=== PATIENT | female | born 1980 | race Caucasian/White ===

== ENCOUNTER 2021-09-18 14:08 | Emergency (ER) | payer OTHER, SELFPAY ==
--- NOTE | ~2021-09-18 | XR_ITS ---
XR foot RT min 3V 09/18/2021 14:24 INDICATION: Heel pain. PROCEDURE: 4 views right foot COMPARISON: No prior studies for comparison. FINDINGS: Fracture, dislocation or subluxation is not identified. Lisfranc joint intact. There are de generative calcaneal enthesophytes. The soft tissues appear within normal limits. No foreign bodies are identified. IMPRESSION: 1: NO ACUTE BONE OR JOINT ABNORMALITY IDENTIFIED. Reviewed, dictated and finalized at location A.
--- NOTE | 2021-09-18 14:09 | ED.LOWEXIN ---
HPI - Extremity Injury (Lower) General Stated Complaint: right foot injury Time Seen by Provider: 09/18/21 14:09 Source: patient Mode of arrival: ambulatory Limitations: no limitations History of Present Illness HPI Narrative: Ms. Gray is a 41-year-old female patient presenting to clinic today with complaints of right foot pain x2 weeks. She reports she reports that she stepped down this morning and felt a pop to the bottom of her foot that caused pain on both sides of her plantar foot. She denies any other known injury. Related Data Home Medications Medication Instructions Recorded Confirmed No Home Medications 09/18/21 09/18/21 Allergies Allergy/AdvReac Type Severity Reaction Status Date / Time No Known Allergies Allergy Verified 09/18/21 14:50 Review of Systems Review of Systems: Pertinent positives per HPI. Patient denies any fever, chills, rash, headache, visual changes, dizziness, cough, runny nose, sore throat, shortness of breath, chest pain, palpitations, nausea, vomiting, diarrhea, constipation, abdominal pain, or any urinary issues. PMFSH Comments At the time of my signature, I reviewed and agree with the nursing past medical, surgical, social, and family history. There is no relevant family history pertinent to the patient complaint. Exam Narrative: General: Well-developed, well nourished, in no apparent distress Head: Normocephalic, atraumatic. Cardio: Regular rate and rhythm, s1 and s2 normal, no murmur appreciated. Resp: Clear to auscultation bilaterally, no rhonchi, rales, wheezing or rubs. Musculoskeletal: No deformity, tender to palpation over the plantar fascia of the right foot, pain with dorsal flexion, muscle strength strong and equal, peripheral pulse strong, no edema, no cyanosis, normal gait and station Course Course Emergency Course: Portions of this record may have been created with voice recognition software. Level of Care: Express Care Visit Vital Signs Vital signs: Vital signs reviewed MDM - Extremity Injury (Lower) MDM Narrative Medical decision making narrative: At the time of visit patient is resting comfortably on the exam table. Imaging Data Attestation: I personally reviewed and interpreted this imaging study as follows: My impression: Negative for any fracture or malalignment of the foot Radiologist's impression: Close Foot X-Ray (Signed) Myron Alexandre - 09/18/21 [facility] [address] [place] [address] XRay Report Signed Patient: Asia Gray : 1980 MR#: [id number] Age/Sex: 41 / F Acct:[id number] Loc: [facility]? ? ADM Date: 09/18/21Attending Dr: Ordering Physician: Delvin Stone APRN Date of Service: 09/18/21 Procedure(s): XR foot RT min 3V Accession Number(s): [id number] cc: Delvin Stone APRN; Hollie, Rubén BORRERO~ XR foot RT min 3V 09/18/2021 14:24 INDICATION: Heel pain. PROCEDURE: 4 views right foot COMPARISON: No prior studies for comparison. FINDINGS: Fracture, dislocation or subluxation is not identified. Lisfranc joint intact. There are degenerative calcaneal enthesophytes.? The soft tissues appear within normal limits.? No foreign bodies are identified. IMPRESSION: 1: NO ACUTE BONE OR JOINT ABNORMALITY IDENTIFIED. Reviewed, dictated and finalized at location A. Dictated By:? Myron Alexandre MD? 09/18/21 142 Signed By:? ? <Electronically signed by? Myron Alexandre MD in OV> 09/18/21 142 Discharge Plan Discharge Clinical Impression: Bone spur, Plantar fascia syndrome Patient Disposition: Home, Self-Care Condition: Stable Instructions: Plantar Fasciitis (ED), Plantar Fasciitis Exercises (ED) Additional Instructions: Planter fasciitis treatment informati
[2021-09-18 14:15] VITALS: BP 129/81; PULSE 87; RESP 16; TEMP 37.1; O2SAT 98
--- NOTE | 2021-09-18 14:35 | PC.NURSE ---
PT DECLINED WHEELCHAIR, ICE, AND ARTURO FOR COMFORT.
== END 2021-09-18 14:45 | disposition home or self-care (01) ==
PROVIDERS: Emergency Provider Nurse Practitioner Family; PCP Physician Assistant
DX: M77.9 Enthesopathy, unspecified (principal); M72.2 Plantar fascial fibromatosis
CPT/HCPCS: 73630; 99203; G0463

== ENCOUNTER 2022-06-05 11:47 | Emergency (ER) | payer OTHER, SELFPAY ==
--- NOTE | ~2022-06-05 | XR_ITS ---
EXAMINATION: XR sacrum coccyx min 2V INDICATION: Coccygeal pain TECHNIQUE: Four views of the sacrum and coccyx are obtained. COMPARISON: None available FINDINGS: No fracture, dislocation, or subluxation. The bones, soft tissues, and joint spaces are nor mal. IMPRESSION: 1. No acute osseous abnormality. Reviewed, dictated and finalized at location B. E ENGINEER
[2022-06-05 11:54] VITALS: BP 122/101; PULSE 126; RESP 16; TEMP 36.5; O2SAT 100
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
== END 2022-06-05 13:28 | disposition home or self-care (01) ==
PROVIDERS: Emergency Provider Registered Nurse; PCP Physician Assistant
DX: M53.3 Sacrococcygeal disorders, not elsewhere classified (principal)
CPT/HCPCS: 72220; 99213; G0463

== ENCOUNTER 2022-07-10 15:37 | Emergency (ER) | payer OTHER, SELFPAY ==
[2022-07-10 15:40] VITALS: BP 119/74; PULSE 71; RESP 20; TEMP 36.6; O2SAT 100
--- NOTE | 2022-07-10 15:48 | ED.URI ---
HPI - URI/Sore Throat General Chief Complaint: Upper Respiratory Infection Stated Complaint: Cough/Sore Throat Time Seen by Provider: 07/10/22 15:49 Source: patient and RN notes reviewed History of Present Illness HPI Narrative: Patient is a 42-year-old female presents to urgent care with complaints of cough and sore throat. Patient states that the sore throat cough started a few days ago after having congestion for 1 month. Patient has been using Vicks and Mucinex. Denies any fever, nausea, vomiting or known exposure. No other acute complaints. No acute distress noted. Patient aware of the plan of care. Some parts of this dictation were generated by voice recognition software and may contain typographical and/or grammatical inaccuracies. Related Data Home Medications Medication Instructions Recorded Confirmed No Home Medications 07/10/22 07/10/22 Allergies Allergy/AdvReac Type Severity Reaction Status Date / Time No Known Allergies Allergy Verified 07/10/22 15:50 Review of Systems Review of Systems: CONSTITUTIONAL: Denies fever, chills, or sweats. EYES: Denies visual changes, redness, or discharge. ENT: Reports of sore throat, drainage, congestion CARDIOVASCULAR: Denies chest pain, palpitations, or edema. RESPIRATORY: Reports cough without dyspnea GASTROINTESTINAL: Denies abdominal pain, nausea, vomiting, or diarrhea. GENITOURINARY: Denies dysuria or hematuria. SKIN: Denies rash or itching. MUSCULOSKELETAL: Denies back pain, joint pain, or myalgia. NEUROLOGIC: Denies headache, numbness, or weakness. All other systems reviewed are negative, except as documented in HPI. [facility] Past Medical History Medical History (Updated 07/10/22 @ 16:12 by MATT Boyer) Achilles tendonitis Surgical History Surgical History (Updated 06/06/22 @ 14:29 by Hillary Manzanares NP) H/O tubal ligation Comments At the time of my signature, I reviewed and agree with the nursing past medical, surgical, social, and family history. There is no relevant family history pertinent to the patient complaint. Exam Narrative: GENERAL: This is a well-nourished, well-developed patient, in no apparent distress. HEAD: normocephalic, atraumatic. EYES: PERRL. Sclera clear/white. Vision is grossly intact. EARS: External ears normal, auditory canals clear and without drainage, TMs normal without perforation. Hearing grossly intact. NOSE: External nose normal with no obvious nasal discharge, nares without redness, no rhinorrhea. THROAT: Mucous membranes moist, posterior pharynx clear. Moderate postnasal drainage NECK: Neck supple, non-tender without lymphadenopathy RESPIRATORY: Clear to auscultation. Breath sounds equal bilaterally. No wheezes, rales, or rhonchi. SKIN: warm, intact with no suspicious lesions or rash, good texture and turgor. NEURO: awake, alert, and oriented to person, place and time. There were no obvious focal neurologic abnormalities. EXTREMITIES: No clubbing, cyanosis, or edema. Course Course Level of Care: Express Care Visit Vital Signs Vital signs: Vital Signs Temperature 97.9 F 07/10/22 15:40 Pulse Rate 71 07/10/22 15:40 Respiratory Rate 20 07/10/22 15:40 Blood Pressure 119/74 07/10/22 15:40 Pulse Oximetry 100 07/10/22 15:40 Oxygen Delivery Room Air 07/10/22 15:40 Temperature 97.9 F 07/10/22 15:40 Pulse Rate 71 07/10/22 15:40 Respiratory Rate 20 07/10/22 15:40 Blood Pressure 119/74 07/10/22 15:40 Pulse Oximetry 100 07/10/22 15:40 Oxygen Delivery Room Air 07/10/22 15:40 Reviewed MDM - URI/Sore Throat MDM Narrative Medical decision making narrative: Reviewed lab results with the patient. She is aware that strep swab was negative. Educated patient on culture we will call within 72 hours if culture is positive antibiotics are necessary. Symptoms are consistent with a common cold. Would advise use of [id number] Zyrtec/Claritin/Benadryl in conju
== END 2022-07-10 16:13 | disposition home or self-care (01) ==
PROVIDERS: Emergency Provider Nurse Practitioner Family; PCP Family Medicine
DX: J02.9 Acute pharyngitis, unspecified (principal)
CPT/HCPCS: 87081; 87880; 99213; G0463